=== PATIENT | male | born 1975 ===

== ENCOUNTER → 2018-12-04 | Outpatient (CLI) | payer OTHER ==
[2018-12-04 13:37] LABS: Cholesterol 205 mg/dL (< 200)
[2018-12-04 13:39] LABS: HDL Cholesterol 49 mg/dL (40-59); LDL Cholesterol 143 mg/dL (< 100); Triglycerides 96 mg/dL (< 150)
== END | disposition home or self-care (01) ==
LOC: LAB 12:12
PROVIDERS: ATTEND Nurse Practitioner
DX: E78.5 Hyperlipidemia, unspecified (principal)
CPT/HCPCS: 36415; 80061